=== PATIENT | female | born 1950 | race Hispanic/Latino ===

== ENCOUNTER 2017-09-04 06:36 | Day surgery (SDC) | payer BC ==
[2017-08-26 15:20] VITALS: BMI 33.6
[2017-09-04] MEDS ORDERED: Propofol 10 mg/ml Inj (20 ML) ONE (07:54)
[2017-09-04] MEDS ORDERED: Lidocaine 1% Inj (20ml) ONE (07:55)
[2017-09-04] MEDS ORDERED: Sodium Chloride 0.9% 1,000 ML IV SCH (08:45)
[2017-09-04 09:23] VITALS: BP 130/70; PULSE 67; RESP 16; TEMP 97.5; O2SAT 97
== END 2017-09-04 09:55 | disposition home or self-care (01) ==
LOC: ENDO 06:36
PROVIDERS: ATTEND Specialist
DX: Z12.11 Encounter for screening for malignant neoplasm of colon (principal); D12.3 Benign neoplasm of transverse colon; K64.8 Other hemorrhoids; Z86.010 Personal history of colon polyps
CPT/HCPCS: 45385; 88305; J2704; J7030